=== PATIENT | male | born 1950 | race African-American/Black ===

== ENCOUNTER → 2018-01-24 | Outpatient (CLI) | payer OTHER ==
[~2018-01-24] MED LIST: ASPIR 8181 MG PO; CENTRUM SILVER1 EAC2 PO; CLONAZEPAM 1 MG1 M1 PO; COLACE100 MG PO; FLEXERIL PO; FLOMAX0.4 MG PO; GLUCOPHAGE XR750 MG PO; KEFLEX250 MG PO; LANTUS SOL100 UNIT/1 SUBQ; LIPITOR 20 MG T20 M1 PO; LYRICA 75 MG CA75 MG PO; MIRTAZAPINE7.5 MG PO; MS CONTIN 30 MG30 M1 PO; MS CONTIN15 MG PO; NICOTINE TRANSD21 M1; NORVASC5 MG PO; NOVOLOG FL100 UNIT/M SUBQ; PERCOCET PO; PRINIVIL20 MG PO; PROZAC20 MG PO; SILVADENE20 GM TOP; SULINDAC 200MG200 M1 PO; VITAMIN D2000 UNIT PO; VOLTAREN GEL 1100 G2 TOP
== END ==
LOC: SLEEPLAB 11:36
DX: G47.33 Obstructive sleep apnea (adult) (pediatric) (principal); I10 Essential (primary) hypertension; E78.00 Pure hypercholesterolemia, unspecified; K21.9 Gastro-esophageal reflux disease without esophagitis